=== PATIENT | female | born 1995 | race African-American/Black ===

== ENCOUNTER 2017-02-12 20:54 | Emergency (ER) | payer SELFPAY ==
[~2017-02-12 20:54] MED LIST: DIFL150T PO
[2017-02-12 20:58] VITALS: BP 134/74; PULSE 77; RESP 16; TEMP 98; O2SAT 100
[2017-02-13] MEDS ORDERED: CEPH-460 PO (00:18)
[2017-02-13] MEDS ORDERED: BACT800T5 PO (00:18)
--- NOTE | 2017-02-13 00:23 | PD ---
HPI Chief Complaint: Skin Problem Time Seen by Provider: 00:04 Travel History International Travel<30 days: No Contact w/Intl Traveler<30days: No Traveled to known affect area: No History of Present Illness HPI 22-year-old black female presents to emergency Department with complaints of a recurrent infection to her left nipple. She states that this is been present now for the past week. It has become increasingly swollen and tender. No drainage. She states that she has had an incision and drainage of her nipple in the past. She denies any fever or chills. No nausea vomiting. Pain is mild. No alleviating factors. PFSH Past Medical History Medical History: Denies Significant Hx Tetanus Vaccination: < 5 Years ?: Unknown : 1 Para: 0 Miscarriage: 1 Past Surgical History Surgical History: No Previous Surgery Social History Alcohol Use: Yes Tobacco Use: No Substance Use: No Allergies-Medications (Allergen,Severity, Reaction): Coded Allergies: No Known Allergies (Unverified , 02/12/17) Reported Meds & Prescriptions Reported Meds & Active Scripts Active Keflex (Cephalexin) 500 Mg Cap 500 Mg PO Q6H Bactrim DS (Sulfamethoxazole-Trimethoprim) 800-160 Mg Tab 1 Tab PO BID Diflucan 150 mg (Fluconazole) 150 Mg Tab 150 Mg PO TODAY Review of Systems Except as stated in HPI: all other systems reviewed are Neg Physical Exam Narrative GENERAL: This is a well-nourished, well-developed patient, in no apparent distress. Patient's examined in the presence of actually the nurse. SKIN: Patient has a 2 x 2 centimeter fluctuant abscess to the left nipple. The remaining breast is unremarkable. Is soft and no palpable masses. No adenopathy. No cellulitis., ecchymoses or lesions. Warm and dry. HEAD: Atraumatic. Normocephalic. EYES: PERRL, EOMI, no discharge or injection. No scleral icterus. EARS: Clear NOSE: Nasal turbinates appear normal. THROAT: Mucosa pink and moist. Airway patent. NECK: Trachea midline. supple, moves head freely. LUNGS: Clear to auscultation. CV: Regular in rhythm. ABDOMEN: Soft nontender. EXT: No clubbing cyanosis or edema. Data Data Last Documented VS Vital Signs Date Time Temp Pulse Resp B/P (MAP) Pulse Ox O2 Delivery O2 Flow Rate FiO2 9/1/17 20:58 98.0 77 16 134/74 (94) 100 Room Air Orders Orders Acetamin-Hydrocod 325-5 Mg ([place] 5-325 (02/13/17 00:30) Cephalexin (Keflex) (02/13/17 00:30) Sulfamet-Trimeth Ds 800-160 Mg (Bactrim (02/13/17 00:30) MDM Medical Decision Making Medical Screen Exam Complete: Yes Emergency Medical Condition: Yes Medical Record Reviewed: Yes Differential Diagnosis MDM: High Differential diagnoses: Abscess, folliculitis, cellulitis, lymphangitis, abrasion, contact dermatitis Narrative Course An incision and drainage of the left nipple has been performed. Patient's given Keflex 500 and Bactrim DS. Culture sent for analysis. Procedures Procedure Narrative I&D abscess: After the risks and benefits were discussed the following procedure was performed. The skin is prepped and draped in the usual sterile fashion using Betadine. The abscess is anesthetized with ethyl chloride. After adequate anesthesia, an 15 blade scalpel is used to make a 1 centimeter central incision. Perulant material is expressed and cultured. The abscess cavity is decompressed.. The wound is left open. A clean dressing is applied. The patient tolerated the procedure well. There was no complications. Follow-up instructions were given to the patient. Diagnosis Primary Impression: Abscess of left nipple Patient Instructions: General Instructions, Narcotic given in the ED Additional Instructions: Rest. Elevation. keep clean and dry. Warm compresses. Daily wound care with soap, water and Neosporin. Three Advil every 6 hours. Bactrim DS and Keflex.. Follow-up with the clinic at [facility] or a primary care doctor in 3-5 days. Return to the ER for any problems. Med/Other Pt SpecificInfo: Prescription(s) given, Wound Care Scripts Cephalexin (Keflex) 500 Mg Cap 500 MG PO Q6H for Infection, #28 CAP 0 Refills Prov: Kenny Pressley MD 02/13/17 Sulfamethoxazole-Trimethoprim (Bactrim DS) 800-160 Mg Tab 1 TAB PO BID for Infection, #20 TAB 0 Refills Prov: Kenny Pressley MD 9/2/17 Disposition: 01 DISCHARGE HOME Condition: Stable Sukhdeep Mckinney Feb 13, 2017 00:23
[2017-02-13] MEDS ORDERED: SULFAMETHOXAZOLE-TRIMETHOPRIM DS 800-160 MG TAB PO ONE (00:30)
[2017-02-13] MEDS ORDERED: CEPHALEXIN MONOHYDRATE 500 MG CAP PO ONE (00:30)
[2017-02-13] MEDS ORDERED: ACETAMINOPHEN/HYDROcodone 325 MG/5 MG TAB PO ONE (00:30)
== END 2017-02-13 00:49 | disposition home or self-care (01) ==
LOC: NEPK 20:54
DX: N61.1 Abscess of the breast and nipple (principal); B96.89 Other specified bacterial agents as the cause of diseases classified elsewhere
CPT/HCPCS: 10060; 87070; 87185; 99284

== ENCOUNTER 2017-03-03 19:22 | Emergency (ER) | payer SELFPAY ==
[~2017-03-03] VITALS: Ht 172.7 cm; Wt 65.0 kg
[~2017-03-03 19:22] MED LIST changes: +BACT800T5 PO; +CEPH-460 PO
[2017-03-03 19:24] VITALS: BP 127/74; PULSE 81; RESP 16; TEMP 98.6; O2SAT 100
--- NOTE | 2017-03-03 19:34 | PD ---
Physical Exam Date Seen by Provider: Mar 03, 2017 Time Seen by Provider: 19:34 Narrative 22-year-old black female presents to emergency department with a abscess to her right buttocks times one week. She states that she has had an abscess in the past. She denies any fever chills. No nausea vomiting. Pain is moderate. Vital signs reviewed. Awaiting bed placement. Data Data Last Documented VS Vital Signs Date Time Temp Pulse Resp B/P (MAP) Pulse Ox O2 Delivery O2 Flow Rate FiO2 03/03/17 19:24 98.6 81 16 127/74 (91) 100 Room Air [facility] Medical Record Reviewed: No Supervised Visit with ESPERANZA: Sukhdeep Mcqueen Mar 03, 2017 19:34
[2017-03-03] MEDS ORDERED: CEPHALEXIN MONOHYDRATE 500 MG CAP PO ONE (19:45)
[2017-03-03] MEDS ORDERED: SULFAMETHOXAZOLE-TRIMETHOPRIM DS 800-160 MG TAB PO ONE (19:45)
[2017-03-03] MEDS ORDERED: BACT800T5 PO (19:48)
[2017-03-03] MEDS ORDERED: CEPH-460 PO (19:48)
--- NOTE | 2017-03-03 19:48 | PD ---
HPI Chief Complaint: Lump, Cyst, Hernia Time Seen by Provider: 19:43 Travel History International Travel<30 days: No Contact w/Intl Traveler<30days: No Traveled to known affect area: No History of Present Illness HPI 22Year-old female presents to emergency department for evaluation of what she believes is an abscess on her right buttock. States that she noticed it about a week and half ago. It is better than it was then. It has started draining a purulent drainage. Denies any fever or chills. States it is tender to touch difficult to sit on it. Pain is a 4 out of 10 When she is not putting pressure on it is not painful. She has no other symptoms to report. PFSH Past Medical History Medical History: Denies Significant Hx ?: Not LMP: 02-24-2017 : 1 Para: 0 Miscarriage: 1 Social History Alcohol Use: Yes Tobacco Use: No Substance Use: No Allergies-Medications (Allergen,Severity, Reaction): Coded Allergies: No Known Allergies (Unverified , 03/03/17) Reported Meds & Prescriptions Reported Meds & Active Scripts Active Keflex (Cephalexin) 500 Mg Capsule 500 Mg PO Q6H 5 Days Bactrim DS (Sulfamethoxazole-Trimethoprim) 800-160 Mg Tab 1 Tab PO BID Keflex (Cephalexin) 500 Mg Cap 500 Mg PO Q6H Bactrim DS (Sulfamethoxazole-Trimethoprim) 800-160 Mg Tab 1 Tab PO BID Diflucan 150 mg (Fluconazole) 150 Mg Tab 150 Mg PO TODAY Review of Systems Except as stated in HPI: all other systems reviewed are Neg Physical Exam Narrative GENERAL: Well-nourished, well-developed female patient in no acute distress SKIN: Focused skin assessment warm/dry. 3 cm area of induration on the right buttock with a central area draining purulent drainage. This is expressed and cultures obtained. Patient tolerated it well. HEAD: Normocephalic. EYES: No scleral icterus. No injection or drainage. NECK: Supple, trachea midline. No JVD or lymphadenopathy. CARDIOVASCULAR: Regular rate and rhythm without murmurs, gallops, or rubs. RESPIRATORY: Breath sounds equal bilaterally. No accessory muscle use. MUSCULOSKELETAL: No cyanosis, or edema. BACK: Nontender without obvious deformity. No CVA tenderness. Data Data Last Documented VS Vital Signs Date Time Temp Pulse Resp B/P (MAP) Pulse Ox O2 Delivery O2 Flow Rate FiO2 03/03/17 19:24 98.6 81 16 127/74 (91) 100 Room Air Orders Orders Wound Culture And Gram Stain (03/03/17 19:45) Sulfamet-Trimeth Ds 800-160 Mg (Bactrim (03/03/17 19:45) Cephalexin (Keflex) (03/03/17 19:45) MDM Medical Decision Making Medical Screen Exam Complete: Yes Emergency Medical Condition: Yes Medical Record Reviewed: Yes Differential Diagnosis Cellulitis versus abscess versus erysipelas versus folliculitis Narrative Course 22 year-old female presents to the emergency department for evaluation of an abscess on right buttock. Area is already draining. She reports it being improved. I do not feel needs to be additionally I&D. Patient will be started on oral antibiotics. She is counseled on care. She agrees to return immediately with any acute worsening symptoms. Diagnosis Primary Impression: Abscess of right buttock Referrals: Primary Care Physician Patient Instructions: Abscess (ED), General Instructions Additional Instructions: Warm compresses to the affected area Do not squeeze the area Follow up with primary care provider Start antibiotics tomorrow and take until all gone Ibuprofen as directed on the package as needed for pain Return to ED with acute worsening of symptoms Med/Other Pt SpecificInfo: Prescription(s) given Scripts Cephalexin (Keflex) 500 Mg Capsule 500 MG PO Q6H for Infection for 5 Days, #20 CAP 0 Refills Prov: Ashlie King 03/03/17 Sulfamethoxazole-Trimethoprim (Bactrim DS) 800-160 Mg Tab 1 TAB PO BID for Infection, #20 TAB 0 Refills Prov: Ashlie King 03/03/17 Disposition: 01 DISCHARGE HOME Condition: Stable Ashlie King Mar 03, 2017 19:48
== END 2017-03-03 20:00 | disposition home or self-care (01) ==
LOC: NEPK 19:22
DX: L02.31 Cutaneous abscess of buttock (principal); B95.61 Methicillin susceptible Staphylococcus aureus infection as the cause of diseases classified elsewhere
CPT/HCPCS: 86403; 87070; 87186; 87205; 99284

== ENCOUNTER 2017-09-04 23:15 | Emergency (ER) | payer SELFPAY | END 2017-09-05 00:43 | disposition left against medical advice (07) | LOC: NED 23:15 | DX: Z53.21 Procedure and treatment not carried out due to patient leaving prior to being seen by health care provider (principal) | CPT/HCPCS: 99281 ==